=== PATIENT | male | born 1975 | race African-American/Black ===

== ENCOUNTER 2017-05-19 19:39 | Emergency (ER) | payer OTHER ==
[~2017-05-19] VITALS: Ht 177.8 cm; Wt 95.3 kg
[2017-05-19 19:55] VITALS: BP 146/101
[2017-05-19] MEDS ORDERED: Lidocaine 1% 10mg/ml/Epi 0.005mg/ml 30ml vial INJ ONE ×2 (20:06→20:30)
[2017-05-19] MEDS ORDERED: ACETAMINOPHEN500 M5 PO (20:21)
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
[2017-05-19 20:35] VITALS: BP 141/92
== END 2017-05-19 20:35 | disposition home or self-care (01) ==
LOC: EMR 20:23
DX: S80.11XA Contusion of right lower leg, initial encounter (principal); X58.XXXA Exposure to other specified factors, initial encounter; Y92.9 Unspecified place or not applicable
CPT/HCPCS: 10060; 99284